=== PATIENT | male | born 1985 | race African-American/Black ===

== ENCOUNTER 2017-10-23 21:09 | Emergency (ER) | payer OTHER ==
[~2017-10-23] VITALS: Ht 188 cm; Wt 130.0 kg
[2017-10-23 21:41] VITALS: BP 166/102; PULSE 120; RESP 16; TEMP 99.2
--- NOTE | 2017-10-23 21:55 | PD ---
HPI Chief Complaint: Psychiatric Symptoms Time Seen by Provider: 21:36 Travel History International Travel<30 days: No Contact w/Intl Traveler<30days: No History of Present Illness HPI 32-year-old male that presents to the ED for evaluation of psychiatric illness. Patient was [place] acted by police after apparently he has been acting different per family members. Patient has a history of bipolar disorder. Patient is currently not on any medications. Per BA patient has been actually interacting with internal stimuli and talking to himself. Patient himself denies this. He denies any suicidal homicidal ideation. No substance abuse. No history of any medical problems per patient. He denies any chest pain or shortness of breath. No other medical issues. Symptoms appear to be ongoing for sometime worse today. PFSH Past Medical History Hx Anticoagulant Therapy: No Cardiovascular Problems: No Chemotherapy: No Cerebrovascular Accident: No Diabetes: No Respiratory: No Past Surgical History Hysterectomy: No Social History Alcohol Use: No Tobacco Use: No Substance Use: No Allergies-Medications (Allergen,Severity, Reaction): Coded Allergies: No Known Allergies (Unverified , 10/23/17) Review of Systems Except as stated in HPI: all other systems reviewed are Neg Physical Exam Narrative GENERAL: SKIN: Warm and dry. HEAD: Atraumatic. Normocephalic. EYES: Pupils equal and round. No scleral icterus. No injection or drainage. ENT: No nasal bleeding or discharge. Mucous membranes pink and moist. Tongue is midline. No uvula deviation. NECK: Trachea midline. No JVD. CARDIOVASCULAR: Regular rate and rhythm. No murmurs, S3, S4. RESPIRATORY: No accessory muscle use. Clear to auscultation. Breath sounds equal bilaterally. GASTROINTESTINAL: Abdomen soft, non-tender, nondistended. Hepatic and splenic margins not palpable. MUSCULOSKELETAL: Extremities without clubbing, cyanosis, or edema. No obvious deformities. Full range of motion of the upper and lower extremities bilaterally. 2+ pulses bilaterally. NEUROLOGICAL: Awake and alert. No obvious cranial nerve deficits. Motor grossly within normal limits. Five out of 5 muscle strength in the arms and legs. Normal speech. PSYCHIATRIC: Appropriate mood and affect; insight and judgment normal. Data Data Last Documented VS Vital Signs Date Time Temp Pulse Resp B/P (MAP) Pulse Ox O2 Delivery O2 Flow Rate FiO2 10/23/17 21:41 99.2 120 16 166/102 (123) Orders Orders Complete Blood Count With Diff (10/23/17 21:37) Comprehensive Metabolic Panel (10/23/17 21:37) Thyroid Stimulating Hormone (10/23/17 21:37) Psych Screen (10/23/17 21:37) Drug Screen, Random Urine (10/23/17 21:37) Alcohol (Ethanol) (10/23/17 21:37) Salicylates (Aspirin) (10/23/17 21:37) Tylenol (Acetaminophen) (10/23/17 21:37) Labs Laboratory Tests Test 10/23/17 21:25 MDM Medical Decision Making Medical Screen Exam Complete: Yes Emergency Medical Condition: Yes Medical Record Reviewed: Yes Differential Diagnosis Depression versus suicidal ideation versus anxiety versus adjustment disorder versus mood disorder versus bipolar disorder versus schizophrenia versus paranoid disorder versus psychosis versus substance abuse versus alcohol abuse versus alcohol induced psychosis versus homicidality addition versus cutting versus personality disorder Narrative Course 32-year-old male who presents to the ED for evaluation of psychiatric illness. Patient was properly examined and was found to have signs and symptoms concerning for psychiatric illnesss. No sign of acute medical distress. Labs were drawn. Patient was medically clear. Okay to be seen by psych. Mental health screening was discussed with the patient. Diagnosis Primary Impression: Bipolar disorder Qualified Codes: F31.60 - Bipolar disorder, current episode mixed, unspecified Yao Padron Oct 23, 2017 21:55
[2017-10-23 21:57] LABS: AUTOMATED NEUTROPHIL # 5.1 TH/MM3 (1.8-7.7); BASOPHIL % 0.3 % (0.0-2.0); EOSINOPHIL % 0.2 % (0.0-4.0); HEMOGLOBIN 15.8 GM/DL (13.0-17.0); LYMPH % 17.4 % (9.0-44.0); LYMPHOCYTE # 1.2 TH/MM3 (1.0-4.8); MEAN CELL VOLUME 93.3 FL (80.0-100.0); MEAN CORPUSCULAR HEMOGLOBIN 32.8 PG (27.0-34.0); MEAN CORPUSCULAR HGB CONC 35.2 % (32.0-36.0); MEAN PLATELET VOLUME 9.4 FL (7.0-11.0); MONO % 8.3 % (0.0-8.0); MONOCYTE # 0.6 TH/MM3 (0-0.9); NEUT % 73.8 % (16.0-70.0); PLATELET COUNT 234 TH/MM3 (150-450); RED BLOOD COUNT 4.82 MIL/MM3 (4.50-5.90); RED CELL DISTRIBUTION WIDTH 12.9 % (11.6-17.2)
[2017-10-23 22:12] LABS: ALT (GPT) 32 U/L (12-78)
[2017-10-23 22:17] LABS: ALBUMIN 4.5 GM/DL (3.4-5.0); AST (GOT) 31 U/L (15-37); BICARBONATE 21.9 MEQ/L (21.0-32.0); BLOOD UREA NITROGEN 11 MG/DL (7-18); CALCIUM 9.4 MG/DL (8.5-10.1); CHLORIDE 107 MEQ/L (98-107); CREATININE 1.41 MG/DL (0.60-1.30); GLOMERULAR FILTRATION RATE 59 ML/MIN (>89); GLUCOSE,RANDOM 144 MG/DL (74-106); SODIUM (NA) 140 MEQ/L (136-145)
[2017-10-23 22:23] LABS: ALKALINE PHOSPHATASE 93 U/L (45-117); TOTAL BILIRUBIN ADULT 0.2 MG/DL (0.2-1.0); TOTAL PROTEIN 8.9 GM/DL (6.4-8.2)
[2017-10-23 22:25] LABS: ACETAMINOPHEN LESS THAN 2.0 MCG/ML (10.0-30.0)
[2017-10-23 22:29] VITALS: BP 168/98; PULSE 104; RESP 19; O2SAT 97
[2017-10-24 04:40] VITALS: BP 122/70; PULSE 91; RESP 18; O2SAT 100
--- NOTE | 2017-10-24 16:29 | PD ---
Physical Exam Time Seen by Provider: 16:29 Narrative The patient is being transferred to [facility] for continued care and evaluation. Data Data Last Documented VS Vital Signs Date Time Temp Pulse Resp B/P (MAP) Pulse Ox O2 Delivery O2 Flow Rate FiO2 10/24/17 04:40 91 18 122/70 (87) 100 Room Air 10/23/17 21:41 99.2 Orders Orders Complete Blood Count With Diff (10/23/17 21:37) Comprehensive Metabolic Panel (10/23/17 21:37) Thyroid Stimulating Hormone (10/23/17 21:37) Psych Screen (10/23/17 21:37) Drug Screen, Random Urine (10/23/17 21:37) Alcohol (Ethanol) (10/23/17 21:37) Salicylates (Aspirin) (10/23/17 21:37) Tylenol (Acetaminophen) (10/23/17 21:37) Diet Regular Basic (10/24/17 Breakfast) Diet Regular Basic (10/24/17 Lunch) Labs Laboratory Tests Test 10/23/17 21:25 10/24/17 12:15 White Blood Count 7.0 TH/MM3 Red Blood Count 4.82 MIL/MM3 Hemoglobin 15.8 GM/DL Hematocrit 45.0 % Mean Corpuscular Volume 93.3 FL Mean Corpuscular Hemoglobin 32.8 PG Mean Corpuscular Hemoglobin Concent 35.2 % Red Cell Distribution Width 12.9 % Platelet Count 234 TH/MM3 Mean Platelet Volume 9.4 FL Neutrophils (%) (Auto) 73.8 % Lymphocytes (%) (Auto) 17.4 % Monocytes (%) (Auto) 8.3 % Eosinophils (%) (Auto) 0.2 % Basophils (%) (Auto) 0.3 % Neutrophils # (Auto) 5.1 TH/MM3 Lymphocytes # (Auto) 1.2 TH/MM3 Monocytes # (Auto) 0.6 TH/MM3 Eosinophils # (Auto) 0.0 TH/MM3 Basophils # (Auto) 0.0 TH/MM3 CBC Comment DIFF FINAL Differential Comment Blood Urea Nitrogen 11 MG/DL Creatinine 1.41 MG/DL Random Glucose 144 MG/DL Total Protein 8.9 GM/DL Albumin 4.5 GM/DL Calcium Level 9.4 MG/DL Alkaline Phosphatase 93 U/L Aspartate Amino Transf (AST/SGOT) 31 U/L Alanine Aminotransferase (ALT/SGPT) 32 U/L Total Bilirubin 0.2 MG/DL Sodium Level 140 MEQ/L Potassium Level 3.7 MEQ/L Chloride Level 107 MEQ/L Carbon Dioxide Level 21.9 MEQ/L Anion Gap 11 MEQ/L Estimat Glomerular Filtration Rate 59 ML/MIN Thyroid Stimulating Hormone 3rd Gen 2.180 uIU/ML Salicylates Level LESS THAN 1.7 MG/DL Acetaminophen Level LESS THAN 2.0 MCG/ML Ethyl Alcohol Level LESS THAN 3 MG/DL Urine Opiates Screen NEG Urine Barbiturates Screen NEG Urine Amphetamines Screen NEG Urine Benzodiazepines Screen NEG Urine Cocaine Screen NEG Urine Cannabinoids Screen POS MDM Supervised Visit with [facility]: No Narrative Course The patient is being transferred to [facility] for continued care and evaluation. Diagnosis Primary Impression: Bipolar disorder Qualified Codes: F31.60 - Bipolar disorder, current episode mixed, unspecified Scripts No Active Prescriptions or Reported Meds Disposition: 65 DISC TO PSYCH CARE FACILITY Bette Ziegler Oct 24, 2017 16:29
[2017-10-24 16:53] VITALS: BP 137/79; PULSE 68; RESP 18; TEMP 97.6; O2SAT 97
== END 2017-10-24 17:12 | disposition short-term general hospital (02) ==
LOC: NEPJ 21:09
DX: F31.60 Bipolar disorder, current episode mixed, unspecified (principal)
CPT/HCPCS: 80053; 80307; 84443; 85025; 99285